=== PATIENT | female | born 1980 | race Caucasian/White ===

== ENCOUNTER 2016-09-22 12:05 | Inpatient (IN) | payer OTHER ==
[2016-09-22] MEDS ORDERED: Sodium Chloride 0.9% 1,000 ML PRIMARY IV ONE (13:15)
[2016-09-22] MEDS ORDERED: NORMAL SALINE 10 ML SYRINGE FLUSH IVP PRN ×2 (13:15→15:56)
[2016-09-22 14:05] LABS: BASOPHILS # (AUTO) 0.04 10*3/UL; BASOPHILS % (AUTO) 0.8 % (0-1); EOSINOPHILS # (AUTO) 0.11 10*3/UL; EOSINOPHILS % (AUTO) 2.3 % (0-8); HEMOGLOBIN 7.2 g/dL (12.0-16.0); LYMPHOCYTES # (AUTO) 2.09 10*3/uL; MEAN CORPUSCULAR HEMOGLOBIN 29.9 PG (27-31); MEAN CORPUSCULAR HGB CONC 35.1 g/dL (33-37); MEAN CORPUSCULAR VOLUME 85.1 FL (81-99); MEAN PLATELET VOLUME 8.7 FL (7.4-12.2); MONOCYTES # (AUTO) 0.27 10*3/UL (0.3-0.8); MONOCYTES % (AUTO) 5.5 % (5-15); NEUTROPHILS # (AUTO) 2.36 10*3/UL; NEUTROPHILS % (AUTO) 48.5 % (50-80); RED BLOOD COUNT 2.41 10^6/uL (4.20-5.40)
--- NOTE | 2016-09-22 14:08 | EKG ---
[address] [address] Measurements Intervals [place] Rate: 83 P: 54 MA: 139 QRS: 77 QRSD: 91 T: 52 QT: 390 QTc: 429 Interpretive Statements SINUS RHYTHM NONSPECIFIC T-WAVE ABNORMALITY (diffuse flattening: query hypocalemia, hypokalemia, myopathy) No previous ECG available for comparison Electronically Signed On 09-23-16 08:32:46 MDT by Pierre Parks MD [email or web address]
[2016-09-22 14:11] LABS: BILIRUBIN,URINE NEGATIVE (NEG); CLARITY,URINE Slightly Cloudy (CLEAR); COLOR,URINE YELLOW; GLUCOSE, URINE (UA) 500 mg/dL (NEG); HEMATOCRIT 20.5 % (37.0-47.0); NITRATE,URINE NEGATIVE (NEG); OCCULT BLOOD,URINE MODERATE (NEG); PROTEIN,URINE >300 mg/dl (NEG); UROBILINOGEN,URINE 0.2 EU/dL (0.2)
[2016-09-22 14:16] LABS: BUN/CREATININE RATIO 14.21 (6-20); C-REACTIVE PROTEIN 0.8 mg/dL (0.0-0.9); CALCIUM 7.6 mg/dL (8.7-10.7); MAGNESIUM 1.5 mg/dL (1.6-2.4); SERUM ALBUMIN 2.1 g/dL (3.5-4.8); URINE SAMPLE TYPE CLEAN CATCH URINE
[2016-09-22 14:17] LABS: BACTERIA,URINE FEW; RBC,URINE 15-20 /hpf; SQUAMOUS EPITHELIAL CELL,UR MODERATE; URINE CASTS FEW; URINE SPECIFIC GRAVITY - MAN 1020
[2016-09-22 14:18] LABS: AMPHETAMINE SCREEN NEGATIVE (NEG); CANNABINOID SCREEN,URINE NEGATIVE (NEG); COCAINE SCREEN NEGATIVE (NEG); METHADONE URINE SCREEN NEGATIVE (NEG); METHAMPHETAMINES SCREEN,URINE NEGATIVE (NEG); OPIATE SCREEN,URINE NEGATIVE (NEG)
[2016-09-22 14:25] LABS: CREATINE KINASE MB 3.17 NG/ML (0.00-5.00); TROPONIN I 0.022 ng/mL (< 0.040)
[2016-09-22 14:30] LABS: PLATELET MORPHOLOGY COMMENT NORMAL MORPHOLOGY (NORM); RBC MORPHOLOGY COMMENT NORMAL MORPHOLOGY (NORM); WBC MORPHOLOGY COMMENT NORMAL MORPHOLOGY (NORM)
[2016-09-22] MEDS ORDERED: ACETAMINOPHEN 325 MG TABLET PO PRN (15:56)
[2016-09-22] MEDS ORDERED: LIDOCAINE W/ SODIUM BICARB 0.5 ML SYR SUBD PRN (15:56)
[2016-09-22] MEDS ORDERED: Potassium Chloride 20 mEq 20 MEQ in Premix 1 BAG IV ONE (15:56)
[2016-09-22] MEDS ORDERED: diphenhydrAMINE 25 MG CAPSULE PO ONE (15:56)
[2016-09-22] MEDS ORDERED: ONDANSETRON 4 MG/2 ML VIAL IVP PRN (15:56)
[2016-09-22] MEDS ORDERED: Sodium Chloride 0.9% 500 ML PRIMARY IV ONE (15:56)
[2016-09-22] MEDS ORDERED: CALCIUM CARBONATE 500 MG (TUMS) CHEWABLE TABLET PO PRN (15:56)
--- NOTE | 2016-09-22 16:00 | DI ---
XR CXR 2VW PA/LAT,09/22/2016 1:15 PM: Clinical History: Anasarca. Previous Exam: None at this facility. Findings: PA and lateral views of the chest are obtained, and demonstrate a right-sided pleural effusion. The cardiomediastinum and bony thorax are unremarkable. Impression: Right-sided pleural effusion.
--- NOTE | 2016-09-22 17:26 | DI ---
CT ABDOMEN/PELVIS W/O CONTRAST,09/22/2016 4:08 PM: Clinical History: Acute renal failure. Previous Exam: None at this facility. Findings: Multiple helically acquired CT images are obtained through the abdomen and pelvis without contrast, a nd demonstrate diffuse anasarca throughout the subcutaneous fat. There are large bilateral pleural effusions. The liver, spleen, adrenals, pancreas and gallbladder are grossly normal but not well evaluated on th is exam due to diffuse edema. The urinary bladder is decompressed and not well evaluated. The uterus and adnexa are also not well e valuated. There is some free fluid within the deep pelvis. Skeletal structures are unremarkable. There is no evidence of hydronephrosis. A few peripheral vascular calcifications are seen. Impression: Diffuse edema and anasarca involving the subcutaneous fat as well as the mesenteric fat which is not well evaluated on this exam. No obstructive uropathy.
[2016-09-22] MEDS ORDERED: Albumin Human Soln 25% 25 GM in Premix 1 BAG IV ONE (17:40)
[2016-09-22] MEDS ORDERED: Magnesium Sulfate 2gm (Premix) 2 GM in Premix 1 BAG IV ONE (17:45)
[2016-09-22] MEDS ORDERED: DEXTROSE 31 GM GEL PO PRN (17:45)
[2016-09-22] MEDS ORDERED: Glucagon Inj Vial 1 MG/ML VIAL IM PRN (17:45)
[2016-09-22] MEDS ORDERED: DEXTROSE 50%-WATER SYRINGE 50 ML SYRINGE IVP PRN (17:45)
[2016-09-22] MEDS ORDERED: Insulin Sliding Scale Protocol SUBCUT PRN (17:45)
--- NOTE | 2016-09-22 17:59 | PDOC ---
History and Physical - History of Present Illness Date and Time of Service: 09/22/2016, 1755 Chief Complaint: Welfare check History of Present Illness: This is a 36 YO with schizophrenia, Hx of renal disease requiring dialysis, DMII , HTN, who was found today on a welfare check and brought in for evaluation. She was reporting hallucinations, and had suicidal ideation and was placed on a hold. On medical evaluation, the patient was found to be in renal failure, has anemia, probably related to kidney disease (I was told by ER physician that rectal was negative), and electrolyte abnormalities. The patient was living with her sister, her guardian, but apparently moved out a month ago and stopped her medications at that time. The patient has a difficult time providing a history due to her schizophrenia with tangential thinking and flight of ideas. She denied any other symptoms of chest pain, shortness of breath, nausea, vomiting, or urinary difficulties. No exacerbating factors other than stopping medications could be identified. Past Medical History Medical History: 1. chronic kidney disease. 2. HTN. 3. Anemia of chronic kidney disease is likely. 4. DMII. 5. schizophrenia Surgical History: 1. History of dialysis catheters. Pertinent Family History: unknown and the patient cannot provide the history due to her psychiatric condition. Past Social History: smokes daily, denies drinking alcohol or drug use. has two healthy children. parents live in [place], [place], and the patient had been in [place] in the past. Tobacco Use: Current Every Day Smoker Substance Use Type: None Alcohol Use: None Medication / Allergies Home Medications: Home Medications Medication Instructions Recorded Confirmed Type Alprazolam [Alprazolam] 1 mg PO PRN 09/22/16 History Amphet Asp/Amphet/D-Amphet 20 mg PO 09/22/16 History [Amphetamine Salts 20 mg Tablet] Budesonide/Formoterol Fumarate 1 inh INH BID 09/22/16 09/22/16 History [Symbicort 160-4.5 Mcg Inhaler] Furosemide [Furosemide] 40 mg PO BID 09/22/16 09/22/16 History Insulin Aspart [Novolog Flexpen] SUBCUT 09/22/16 History Insulin Detemir [Levemir Flextouch] SUBCUT 09/22/16 History Allergies/Adverse Reactions: Allergies Allergy/AdvReac Type Severity Reaction Status Date / Time bee venom protein (honey bee) Allergy Anaphylaxis Verified 09/22/16 13:28 kiwi Allergy SWELLING Verified 09/22/16 16:00 Penicillins Allergy Anaphylaxis Verified 09/22/16 13:28 Review of Systems - Review of Systems All Systems: Reviewed & No Additional Complaints Except as Stated (I did a 12 point review of systems and it is negative except as per HPI and that noted below.) - Constitutional Constitutional: REPORTS: Other (apparently had not had a meal in the last 4 days.) - Respiratory Respiratory: DENIES: Negative System Review, Cough, Sputum, Dyspnea At Rest, Dyspnea with Exertion, Pleuritic Pain, Hemoptysis, Wheezing, Other, See HPI - Cardiovascular Cardiovascular: DENIES: Negative System Review, Chest Pain, Edema, Syncope, Palpitations, Orthopnea, Paroxysmal Nocturnal Dyspnea, Other, See HPI - Gastrointestinal Gastrointestinal / Abdominal: DENIES: Negative System Review, Nausea, Vomiting, Diarrhea, Constipation, Abdominal Pain, Bloody Stool, Poor Appetite, Heartburn, Regurgitation, Bloating, Lactose Intolerance, Melena, Bright Red Blood Per Rectum, Other, See HPI - Genitourinary Genitourinary: DENIES: Negative System Review, Pain, Burning, Hematuria, Incontinence, Urgency, Hesitant Stream, Decreased Stream, Nocutria, Discharge, Sexual Dyfunction, Other, See HPI - Musculoskeletal Musculoskeletal: REPORTS: Other (edema in lower extremities) - Neurological Neurologic: DENIES: Negative System Review, Headache, Numbness/Paresthesia, Tremors, Weakness, Seizures, Head Trauma, LOC, Dizziness, Confusion, Memory Loss , Difficulty Walking, Incoordination, Other, See HPI - Psychiatric Psychiatric: REPORTS: Other (flight of ideas, tangential, visual hallucinations , schizophrenia), Suicidality Exam - Vitals Vital Signs: Vital Signs Temperature 97.8 F Temperature Source Temporal Artery Scan Pulse Rate [Pulse Oximeter] 79 Respiratory Rate 22 Blood Pressure [Left Arm] 163/121 Pulse Ox 95 Oxygen Delivery Method Room Air Height 5 ft 9 in Weight 170 lb 9.6 oz - General General Appearance: POSITIVE: No Acute Distress, Cooperative - Head Head Exam: POSITIVE: Normal Inspection, Normocephalic, Atraumatic - Eye Eye Exam: POSITIVE: No Scleral Icterus - ENT ENT Exam: POSITIVE: Mucous Membranes Moist - Neck Neck Exam: POSITIVE: Normal Inspection, No Tenderness, No Thyromegaly - Respiratory Respiratory Exam: POSITIVE: Clear to Auscultation - Bilaterally, Breathing Non Labored, Normal to Percussion and Palpation - Cardiovascular Cardiovascular Exam: POSITIVE: RRR, No Murmur, No Clicks, No Gallops, No Rubs, No JVD - GI/Abdominal GI/Abdominal Exam: POSITIVE: Normal Bowel Sounds, Non Tender, Non Distended, Soft - Rectal Rectal Exam: POSITIVE: Deferred Additional Rectal Exam Details: done in ER per my discussion with ER physician, negative for blood. - External Exam: POSITIVE: Deferred Exam: POSITIVE: Deferred - Extremities Extremities Exam: POSITIVE: No Clubbing Present, No Cyanosis Present, +3 Edema - Back Back Exam: POSITIVE: No CVA Tenderness - Neurological Neurological Exam: POSITIVE: Alert, Oriented x 3, No Facial Droop, Speech Intact / Clear, Moves All Extremities Equally - Psychiatric Psychiatric Exam: POSITIVE: Suicidal Ideation Additional Psychiatric Exam Details: hallucinations, visual and auditory flight of ideas tangential. - Central Line Examination Central Line Present on Admission: No Results - Labs CBC and BMP: 09/22/16 14:01 09/22/16 14:01 Labs - Last 24 Hours: Laboratory Results 09/22/16 09/22/16 Range/Units 15:56 16:00 Phosphorus 4.5 H (2.4-4.3) mg/dl Blood Type A POSITIVE Antibody Screen Negative Crossmatch See Detail Laboratory Results 09/22/16 09/22/16 09/22/16 Range/Units 14:01 15:56 16:00 WBC 4.87 (4.8-10.8) 10^3/uL RBC 2.41 L (4.20-5.40) 10^6/uL Hgb 7.2 L (12.0-16.0) g/dL Hct 20.5 L* (37.0-47.0) % MCV 85.1 (81-99) FL MCH 29.9 (27-31) PG MCHC 35.1 (33-37) g/dL RDW Std Deviation 47.9 (39-50) fL RDW Coeff of Lona 16.1 H (11.5-14.5) % Plt Count 246 (140-350) 10*3/uL MPV 8.7 (7.4-12.2) FL Immature Gran % (Auto) 0 (0-5) % Neut % (Auto) 48.5 L (50-80) % Lymph % (Auto) 42.9 (10-50) % [place] % (Auto) 5.5 (5-15) % Eos % (Auto) 2.3 (0-8) % Baso % (Auto) 0.8 (0-1) % Immature Gran # (Auto) 0 10*3/UL Neut # (Auto) 2.36 10*3/UL Lymph # (Auto) 2.09 10*3/uL [place] # (Auto) 0.27 L (0.3-0.8) 10*3/UL Eos # (Auto) 0.11 10*3/UL Baso # (Auto) 0.04 10*3/UL WBC Morphology Comment Normal morphology (NORM) Plt Morphology Comment Normal morphology (NORM) RBC Morph Comment Normal morphology (NORM) Sodium 132 L (135-145) meq/L Potassium 3.0 L (3.8-5.2) meq/L Chloride 105 (98-112) meq/L Carbon Dioxide 23 (23-33) meq/L Anion Gap 4 L (5-20) BUN 27 H (7-22) mg/dL Creatinine 1.9 H (0.50-1.20) mg/dL Estimated GFR 30 (>60 ml/min/1.73m(2)) BUN/Creatinine Ratio 14.21 (6-20) Glucose 220 H (78-110) mg/dL Calculated Osmolality 285.0 (267-292) mOsm/kg Lactic Acid 0.8 (0.70-2.10) MMOL/L Calcium 7.6 L (8.7-10.7) mg/dL Phosphorus 4.5 H (2.4-4.3) mg/dl Magnesium 1.5 L (1.6-2.4) mg/dL Total Bilirubin 0.4 (0.3-1.2) mg/dL AST 18 (8-39) IU/L ALT 24 (9-52) IU/L Alkaline Phosphatase 89 (38-126) IU/L Total Creatine Kinase 171 H (30-136) IU/L CK-MB (CK-2) 3.17 (0.00-5.00) NG/ML Troponin I 0.022 (< 0.040) ng/mL C-Reactive Protein 0.8 (0.0-0.9) mg/dL NT-Pro-B Natriuret Pep 18719 H (0-125) PG/ML Total Protein 4.9 L (6.1-8.0) g/dL Albumin 2.1 L (3.5-4.8) g/dL Globulin 2.8 (2.50-4.10) g/dL Albumin/Globulin Ratio 0.70 L (1.3-2.0) mg/g TSH 2.88 (0.2700-4.2000) uIU/mL Ur Collection Type Clean catch urine Urine Color Yellow Urine Clarity Slightly cloudy (CLEAR) Urine pH 7.0 (5.0-8.5) Ur Specific [place] 1.020 (1.005-1.030) U Specif Grav (Refrac) 1.020 Urine Protein >300 (NEG) mg/dl Urine Glucose (UA) 500 (NEG) mg/dL Urine Ketones Negative (NEG) Urine Occult Blood Moderate H (NEG) Urine Nitrate Negative (NEG) Urine Bilirubin Negative (NEG) Urine Urobilinogen 0.2 (0.2) EU/dL Ur Leukocyte Esterase Negative (NEG) Urine RBC 15-20 (NONE) /hpf Urine WBC 4-6 (NONE) Ur Squamous Epith Cells Moderate (NONE) Ur Renal Epithelial Cell None (NONE) Urine Crystals None Urine Bacteria Few (NONE) Urine Casts Few (NONE) Urine Mucus Few (NONE) Urine Trichomonas None (NONE) Urine Yeast None (NONE) Ur Culture Indicated? Culture not set Urine HCG, Qual Negative Urine Opiates Screen Negative (NEG) Ur Buprenorphine Negative (NEG) Ur Oxycodone Screen Negative (NEG) Urine Methadone Screen Negative (NEG) Ur Propoxyphene Screen Negative (NEG) Barbiturate Screen Negative (NEG) U Tricyclic Antidepress Negative (NEG) Phencyclidine Screen Negative (NEG) Amphetamines Screen Negative (NEG) U Methamphetamines Scrn Negative (NEG) Benzodiazepines Screen Negative (NEG) Cocaine Screen Negative (NEG) U Marijuana (THC) Screen Negative (NEG) Blood Type A POSITIVE Antibody Screen Negative Crossmatch See Detail - EKG Data -: EKG Interpreted by Me Rate: Normal EKG Shows Normal: Sinus Rhythm - EKG Data EKG Interpretation: Normal EKG - Imaging Status: Image Reviewed by Me (Chest x-ray, negative on my view other than a right pleural effusion. No evidence of pneumonia. CT scan of abdomen and pelvis shows anasarca and bilateral effusions, right greater than left) Assessment and Plan - Patient Problems (1) Acute on chronic renal failure Current Visit: Yes Status: Acute (2) Anemia due to chronic kidney disease Current Visit: Yes Status: Acute (3) Poorly controlled type II diabetes mellitus with renal complication Current Visit: Yes Status: Acute (4) Hypertension Current Visit: Yes Status: Acute Qualifiers: Hypertension type: renovascular hypertension Qualified Description: Renovascular hypertension Qualifier Code(s): (I15.0) Renovascular hypertension (5) Schizophrenia Current Visit: Yes Status: Acute Qualifiers: Schizophrenia type: unspecified Qualified Description: Schizophrenia, unspecified type Qualifier Code(s): (F20.9) Schizophrenia, unspecified (6) Tobacco abuse Current Visit: Yes Status: Acute (7) Hypokalemia Current Visit: Yes Status: Acute (8) Hyperphosphatemia Current Visit: Yes Status: Acute - Assessment / Plan Additional Assessment/Plan Details: Admit the patient. Transfuse 2 units of packed red blood cells, get iron studies, I spoke with the nephrology service, and we'll place the patient back on Lasix as well. They are aware of the creatinine. Likely, tomorrow, if the patient improves or even if she doesn't, she may be looking at transfer for further nephrology care. I spoke with nephrology out of [place], [place], and they were familiar with the patient. Resume Lasix, give albumin infusion. I will try to put the patient on sliding scale lispro for diabetes coverage. Check cholesterol in the morning. Resume blood pressure medication, given her fluid status I think I'll start Norvasc. The patient is on a 381 hold, and likely will need a stay for her psychiatric stabilization in terms of her hallucinations, suicidal ideation, and stabilization on medications. However she is not medically ready to go yet. Confirmed what medications I can from review of local pharmacy lists, but certainly these medications on hold off on restarting such as Xanax, and amphetamine derivative. Check labs tomorrow.
[2016-09-22] MEDS ORDERED: FUROSEMIDE 10 MG/1 ML - 4 ML IVP ONE (18:12)
[2016-09-22] MEDS ORDERED: LABETALOL 20 MG/4 ML (5 MG/1 ML) SYRINGE IVP PRN (18:34)
[2016-09-22] MEDS ORDERED: CALCIUM CARBONATE 500 MG (TUMS) CHEWABLE TABLET PO SCH (21:00)
[2016-09-22] MEDS ORDERED: QUEtiapine Tab 100 MG TAB PO SCH (21:00)
[2016-09-22] MEDS: Insulin Lispro Flexpen 300 UNIT/3 ML INSULN.PEN SUBCUT SCH (22:41)
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
[2016-09-23] MEDS ORDERED: POTASSIUM CHLORIDE 20 MEQ TAB PO ONE (05:04)
[2016-09-23] MEDS ORDERED: Albumin Human Soln 25% 25 GM in Premix 1 BAG IV ONE (05:15)
[2016-09-23] MEDS ORDERED: Potassium Chloride 20 mEq 20 MEQ in Premix 1 BAG IV ONE (05:15)
[2016-09-23] MEDS: FUROSEMIDE 10 MG/1 ML - 4 ML IVP SCH ×2 (06:51→14:09)
[2016-09-23 07:40] LABS: BASOPHILS # (AUTO) 0.11 10*3/UL; BASOPHILS % (AUTO) 2.2 % (0-1); EOSINOPHILS # (AUTO) 0.16 10*3/UL; EOSINOPHILS % (AUTO) 3.2 % (0-8); HEMATOCRIT 25.9 % (37.0-47.0); HEMOGLOBIN 8.9 g/dL (12.0-16.0); LYMPHOCYTES # (AUTO) 2.63 10*3/uL; MEAN CORPUSCULAR HEMOGLOBIN 28.9 PG (27-31); MEAN CORPUSCULAR HGB CONC 34.4 g/dL (33-37); MEAN CORPUSCULAR VOLUME 84.1 FL (81-99); MONOCYTES # (AUTO) 0.28 10*3/UL (0.3-0.8); MONOCYTES % (AUTO) 5.6 % (5-15); NEUTROPHILS # (AUTO) 1.83 10*3/UL; NEUTROPHILS % (AUTO) 36.5 % (50-80); RED BLOOD COUNT 3.08 10^6/uL (4.20-5.40)
[2016-09-23] MEDS: Insulin Lispro Flexpen 300 UNIT/3 ML INSULN.PEN SUBCUT SCH ×2 (07:40→11:45)
[2016-09-23 07:46] LABS: PLATELET MORPHOLOGY COMMENT NORMAL MORPHOLOGY (NORM); RBC MORPHOLOGY COMMENT NORMAL MORPHOLOGY (NORM); WBC MORPHOLOGY COMMENT NORMAL MORPHOLOGY (NORM)
[2016-09-23 07:59] LABS: BUN/CREATININE RATIO 17.22 (6-20); CALCIUM 7.7 mg/dL (8.7-10.7); SERUM ALBUMIN 2.5 g/dL (3.5-4.8)
[2016-09-23 08:00] LABS: HEMOGLOBIN A1C 6.06 % (4.2-6.0)
[2016-09-23 09:21] VITALS: RESP 20
--- NOTE | 2016-09-23 14:05 | DCSUMMARY ---
Hospitalization Summary Admit Date: 09/22/16 Discharge Date: 09/23/16 Primary Diagnosis:: acute on chronic renal failure with low urine output Hospital Course: This is a 36-year-old female who unfortunately suffers from fairly debilitating schizophrenia, currently complicated by hallucinations both auditory and visual , diabetes mellitus type II, and renal failure. She has hypertension as well. She was admitted after a welfare check found her having not had anything to eat for the last 4 days. She stopped all of her medications about a month ago and apparently is now estranged from her sister who was her guardian. She is essentially homeless, and is on a 381 hold. She was admitted in the setting of metabolic derangements in signs and symptoms consistent with renal failure including total body anasarca, creatinine, hyperphosphatemia, initially hypokalemia, and hypomagnesemia. We gave the patient 2 units of packed red blood cells, did an iron panel which showed a normal iron level although the TIBC is low. We also replaced her electrolytes although her potassium is slightly elevated at the time of discharge. I resumed some medications, including Lasix, and I also started Norvasc given her fluid overload state. We did find in terms of her diabetes and it is fairly well-controlled and can be diet controlled at this point with a hemoglobin A1c of 6.06. The patient's renal function did not really improve and she required Bowers catheterization to more accurately monitor output. She had 1000 mL out in the last 24 hours. Overall, I think the patient is beyond her capabilities to take care of here in [place] due to her renal failure. Given her fluid overload, electrolyte abnormalities, I don't know if she'll need dialysis but I think she would be best served by evaluation by nephrology, and I spoke to Dr. Pantoja, as well as the hospitalist and emergency room physician in [place], and they agreed to accept the patient. I disclosed all of the social issues with the patient including the 381 hold, we found that the patient is on probation, and she has no home to go to. She will likely need a new guardian. In terms of schizophrenia, I did resume Seroquel. She is a little more tired today and might need a lower dose. I did not resume any other medications, as she has been on Xanax and an amphetamine derivative. I think this can be better assessed by psychiatrist down the road. The patient has no complaints of chest pain, shortness breath, nausea or vomiting. She is eating very well. Assessment and Plan: 1. As per discharge assessments noted 2. Disposition: Patient is discharged to [facility] 3. Condition on discharge, stable, but condition could worsen based on her diagnosis above 4. Diet: regular diet/as per [facility] 5. Activities: Activities as per [facility] 6. Follow-Up: 1. Primary care provider 7 days post discharge from the hospital. 2. 7. Medications at the Time of Discharge: Active Medications Generic Name Dose Route Start Last Admin Trade Name Freq PRN Reason Stop Dose Admin Acetaminophen 650 mg 09/22/16 15:56 Tylenol PO Q6H PRN Pain or Fever Amlodipine Besylate 10 mg 09/23/16 09:00 09/23/16 11:41 Norvasc PO 10 mg DAILY MELI Administration Calcium Carbonate 1 - 2 tab 09/22/16 15:56 09/22/16 22:41 Tums PO 2 tab Q6H PRN Administration Heartburn Dextrose 30 - 40 ml 09/22/16 17:45 Dextrose 50% Inj IVP Q15M PRN BG < 70 unable to take oral Furosemide 40 mg 09/23/16 07:00 09/23/16 06:51 Lasix Inj IVP 40 mg BID@0700,1300 MELI Administration Glucagon 0.5 mg 09/22/16 17:45 Glucagen IM ONCE PRN BG < 70 NPO & NO IV Glucose 15 - 20 gm 09/22/16 17:45 Insta-Glucose Gel PO Q15M PRN BG < 70 Sodium Chloride 25 mls @ 200 mls/hr 09/22/16 15:56 Normal Saline 0.9% IV .Post Infusion PRN No Primary IV for Flush ONLY Insulin Human Lispro 0 - 20 unit 09/22/16 21:00 09/23/16 11:45 Humalog Flexpen Inj SUBCUT Not Given AC [facility] Protocol Labetalol HCl 20 mg 09/22/16 18:34 Normodyne Inj IVP Q4H PRN SBP > 190, DBP > 130 Lidocaine HCl 0.5 ml 09/22/16 15:56 Lidocaine Buffered Inj SUBD ONCE PRN IV Starts Ondansetron HCl 4 mg 09/22/16 15:56 Zofran Inj IVP Q4H PRN NAUSEA / VOMITING Quetiapine Fumarate 100 mg 09/22/16 21:00 09/22/16 22:40 Seroquel Tab PO 100 mg BEDTIME MELI Administration Sodium Chloride 5 - 20 ml 09/22/16 15:56 Saline Flush IVP BID PRN Flush 8. Time, care, counseling and coordination of care for this discharge is greater than 30 minutes. Exam - Vitals Vital Signs: Vital Signs Temperature 98.2 F Temperature Source Temporal Artery Scan Pulse Rate [Pulse Oximeter] 84 Pulse Rate 86 Respiratory Rate 20 Blood Pressure [Left Arm] 152/89 Blood Pressure 145/89 Pulse Ox 98 Oxygen Flow Rate 1 Oxygen Delivery Method Nasal Cannula Height 5 ft 9 in Weight 170 lb 9.6 oz - General General Appearance: POSITIVE: No Acute Distress, Cooperative - Head Head Exam: POSITIVE: Normal Inspection, Normocephalic, Atraumatic - Eye Eye Exam: POSITIVE: No Scleral Icterus - Respiratory Respiratory Exam: POSITIVE: Clear to Auscultation - Bilaterally, Breathing Non Labored, Decreased Breath Sounds (Right base) - Cardiovascular Cardiovascular Exam: POSITIVE: RRR, No Murmur, No Clicks, No Gallops, No Rubs, No JVD - GI/Abdominal GI/Abdominal Exam: POSITIVE: Normal Bowel Sounds, Non Tender, Non Distended, Soft - Extremities Extremities Exam: POSITIVE: +3 Edema (3+ edema in all extremities, upper extremity is and lower extremities.) - Neurological Neurological Exam: POSITIVE: Alert, No Facial Droop, Speech Intact / Clear, Moves All Extremities Equally - Psychiatric Psychiatric Exam: POSITIVE: Suicidal Ideation (She denies this today, but has had hallucinations through the hospital stay. She is not violent.) - Central Line Examination Central Line Present on Admission: No Data Perinent Studies: Laboratory Results 09/22/16 09/22/16 09/22/16 Range/Units 14:01 15:56 16:00 WBC 4.87 (4.8-10.8) 10^3/uL RBC 2.41 L (4.20-5.40) 10^6/uL Hgb 7.2 L (12.0-16.0) g/dL Hct 20.5 L* (37.0-47.0) % MCV 85.1 (81-99) FL MCH 29.9 (27-31) PG MCHC 35.1 (33-37) g/dL RDW Std Deviation 47.9 (39-50) fL RDW Coeff of [place] 16.1 H (11.5-14.5) % Plt Count 246 (140-350) 10*3/uL MPV 8.7 (7.4-12.2) FL Immature Gran % (Auto) 0 (0-5) % Neut % (Auto) 48.5 L (50-80) % Lymph % (Auto) 42.9 (10-50) % [place] % (Auto) 5.5 (5-15) % Eos % (Auto) 2.3 (0-8) % Baso % (Auto) 0.8 (0-1) % Immature Gran # (Auto) 0 10*3/UL Neut # (Auto) 2.36 10*3/UL Lymph # (Auto) 2.09 10*3/uL [place] # (Auto) 0.27 L (0.3-0.8) 10*3/UL Eos # (Auto) 0.11 10*3/UL Baso # (Auto) 0.04 10*3/UL WBC Morphology Comment Normal morphology (NORM) Plt Morphology Comment Normal morphology (NORM) RBC Morph Comment Normal morphology (NORM) Sodium 132 L (135-145) meq/L Potassium 3.0 L (3.8-5.2) meq/L Chloride 105 (98-112) meq/L Carbon Dioxide 23 (23-33) meq/L Anion Gap 4 L (5-20) BUN 27 H (7-22) mg/dL Creatinine 1.9 H (0.50-1.20) mg/dL Estimated GFR 30 (>60 ml/min/1.73m(2)) BUN/Creatinine Ratio 14.21 (6-20) Glucose 220 H (78-110) mg/dL Mean Blood Glucose mg/dL Hemoglobin A1c (4.2-6.0) % Calculated Osmolality 285.0 (267-292) mOsm/kg Lactic Acid 0.8 (0.70-2.10) MMOL/L Calcium 7.6 L (8.7-10.7) mg/dL Phosphorus 4.5 H (2.4-4.3) mg/dl Magnesium 1.5 L (1.6-2.4) mg/dL Iron (37-170) UG/DL TIBC (265-497) ug/dL % Saturation (14-50) % Total Bilirubin 0.4 (0.3-1.2) mg/dL AST 18 (8-39) IU/L ALT 24 (9-52) IU/L Alkaline Phosphatase 89 (38-126) IU/L Total Creatine Kinase 171 H (30-136) IU/L CK-MB (CK-2) 3.17 (0.00-5.00) NG/ML Troponin I 0.022 (< 0.040) ng/mL C-Reactive Protein 0.8 (0.0-0.9) mg/dL NT-Pro-B Natriuret Pep 25410 H (0-125) PG/ML Total Protein 4.9 L (6.1-8.0) g/dL Albumin 2.1 L (3.5-4.8) g/dL Globulin 2.8 (2.50-4.10) g/dL Albumin/Globulin Ratio 0.70 L (1.3-2.0) mg/g TSH 2.88 (0.2700-4.2000) uIU/mL Ur Collection Type Clean catch urine Urine Color Yellow Urine Clarity Slightly cloudy (CLEAR) Urine pH 7.0 (5.0-8.5) Ur Specific [place] 1.020 (1.005-1.030) U Specif Grav (Refrac) 1.020 Urine Protein >300 (NEG) mg/dl Urine Glucose (UA) 500 (NEG) mg/dL Urine Ketones Negative (NEG) Urine Occult Blood Moderate H (NEG) Urine Nitrate Negative (NEG) Urine Bilirubin Negative (NEG) Urine Urobilinogen 0.2 (0.2) EU/dL Ur Leukocyte Esterase Negative (NEG) Urine RBC 15-20 (NONE) /hpf Urine WBC 4-6 (NONE) Ur Squamous Epith Cells Moderate (NONE) Ur Renal Epithelial Cell None (NONE) Urine Crystals None Urine Bacteria Few (NONE) Urine Casts Few (NONE) Urine Mucus Few (NONE) Urine Trichomonas None (NONE) Urine Yeast None (NONE) Ur Culture Indicated? Culture not set Urine HCG, Qual Negative Urine Opiates Screen Negative (NEG) Ur Buprenorphine Negative (NEG) Ur Oxycodone Screen Negative (NEG) Urine Methadone Screen Negative (NEG) Ur Propoxyphene Screen Negative (NEG) Barbiturate Screen Negative (NEG) U Tricyclic Antidepress Negative (NEG) Phencyclidine Screen Negative (NEG) Amphetamines Screen Negative (NEG) U Methamphetamines Scrn Negative (NEG) Benzodiazepines Screen Negative (NEG) Cocaine Screen Negative (NEG) U Marijuana (THC) Screen Negative (NEG) Blood Type A POSITIVE Antibody Screen Negative Crossmatch See Detail 09/22/16 09/23/16 Range/Units 17:48 07:24 WBC 5.01 (4.8-10.8) 10^3/uL RBC 3.08 L (4.20-5.40) 10^6/uL Hgb 8.9 L (12.0-16.0) g/dL Hct 25.9 L (37.0-47.0) % MCV 84.1 (81-99) FL MCH 28.9 (27-31) PG MCHC 34.4 (33-37) g/dL RDW Std Deviation 48.9 (39-50) fL RDW Coeff of Lona 16.6 H (11.5-14.5) % Plt Count 208 (140-350) 10*3/uL MPV 9.0 (7.4-12.2) FL Immature Gran % (Auto) 0 (0-5) % Neut % (Auto) 36.5 L (50-80) % Lymph % (Auto) 52.5 H (10-50) % [place] % (Auto) 5.6 (5-15) % Eos % (Auto) 3.2 (0-8) % Baso % (Auto) 2.2 H (0-1) % Immature Gran # (Auto) 0 10*3/UL Neut # (Auto) 1.83 10*3/UL Lymph # (Auto) 2.63 10*3/uL [place] # (Auto) 0.28 L (0.3-0.8) 10*3/UL Eos # (Auto) 0.16 10*3/UL Baso # (Auto) 0.11 10*3/UL WBC Morphology Comment Normal morphology (NORM) Plt Morphology Comment Normal morphology (NORM) RBC Morph Comment Normal morphology (NORM) Sodium 132 L (135-145) meq/L Potassium 5.5 H D (3.8-5.2) meq/L Chloride 107 (98-112) meq/L Carbon Dioxide 23 (23-33) meq/L Anion Gap 2 L (5-20) BUN 31 H (7-22) mg/dL Creatinine 1.8 H (0.50-1.20) mg/dL Estimated GFR 32 (>60 ml/min/1.73m(2)) BUN/Creatinine Ratio 17.22 (6-20) Glucose 155 H (78-110) mg/dL Mean Blood Glucose 115.798 mg/dL Hemoglobin A1c 6.06 H (4.2-6.0) % Calculated Osmolality 283.0 (267-292) mOsm/kg Lactic Acid (0.70-2.10) MMOL/L Calcium 7.7 L (8.7-10.7) mg/dL Phosphorus 5.0 H (2.4-4.3) mg/dl Magnesium (1.6-2.4) mg/dL Iron 41 (37-170) UG/DL TIBC 158 L (265-497) ug/dL % Saturation 25.9 (14-50) % Total Bilirubin (0.3-1.2) mg/dL AST (8-39) IU/L ALT (9-52) IU/L Alkaline Phosphatase (38-126) IU/L Total Creatine Kinase (30-136) IU/L CK-MB (CK-2) (0.00-5.00) NG/ML Troponin I (< 0.040) ng/mL C-Reactive Protein (0.0-0.9) mg/dL NT-Pro-B Natriuret Pep (0-125) PG/ML Total Protein (6.1-8.0) g/dL Albumin 2.5 L (3.5-4.8) g/dL Globulin (2.50-4.10) g/dL Albumin/Globulin Ratio (1.3-2.0) mg/g TSH (0.2700-4.2000) uIU/mL Ur Collection Type Urine Color Urine Clarity (CLEAR) Urine pH (5.0-8.5) Ur Specific [place] (1.005-1.030) U Specif Grav (Refrac) Urine Protein (NEG) mg/dl Urine Glucose (UA) (NEG) mg/dL Urine Ketones (NEG) Urine Occult Blood (NEG) Urine Nitrate (NEG) Urine Bilirubin (NEG) Urine Urobilinogen (0.2) EU/dL Ur Leukocyte Esterase (NEG) Urine RBC (NONE) /hpf Urine WBC (NONE) Ur Squamous Epith Cells (NONE) Ur Renal Epithelial Cell (NONE) Urine Crystals Urine Bacteria (NONE) Urine Casts (NONE) Urine Mucus (NONE) Urine Trichomonas (NONE) Urine Yeast (NONE) Ur Culture Indicated? Urine HCG, Qual Urine Opiates Screen (NEG) Ur Buprenorphine (NEG) Ur Oxycodone Screen (NEG) Urine Methadone Screen (NEG) Ur Propoxyphene Screen (NEG) Barbiturate Screen (NEG) U Tricyclic Antidepress (NEG) Phencyclidine Screen (NEG) Amphetamines Screen (NEG) U Methamphetamines Scrn (NEG) Benzodiazepines Screen (NEG) Cocaine Screen (NEG) U Marijuana (THC) Screen (NEG) Blood Type Antibody Screen Crossmatch Patient Problems - Patient Problem List (1) Acute on chronic renal failure Current Visit: Yes Status: Acute (2) Anemia due to chronic kidney disease Current Visit: Yes Status: Acute (3) Poorly controlled type II diabetes mellitus with renal complication Current Visit: Yes Status: Acute (4) Hypertension Current Visit: Yes Status: Acute Qualifiers: Hypertension type: renovascular hypertension Qualified Description: Renovascular hypertension Qualifier Code(s): (I15.0) Renovascular hypertension (5) Schizophrenia Current Visit: Yes Status: Acute Qualifiers: Schizophrenia type: unspecified Qualified Description: Schizophrenia, unspecified type Qualifier Code(s): (F20.9) Schizophrenia, unspecified (6) Tobacco abuse Current Visit: Yes Status: Acute (7) Hypokalemia Current Visit: Yes Status: Resolved (8) Hyperphosphatemia Current Visit: Yes Status: Acute
[2016-09-23 14:12] VITALS: TEMP 98.1
== END 2016-09-23 14:51 | disposition short-term general hospital (02) | DRG 684 ==
LOC: ER 12:11 → MED/SURG 15:49
PROVIDERS: ADMIT Family Medicine; ATTEND Family Medicine
PROC: 30233N1 Transfusion of Nonautologous Red Blood Cells into Peripheral Vein, Percutaneous Approach (ICD-10-PCS; principal; 2016-09-23)
DX: R60.1 Generalized edema (principal); D64.9 Anemia, unspecified; E11.21 Type 2 diabetes mellitus with diabetic nephropathy; N17.9 Acute kidney failure, unspecified; E11.22 Type 2 diabetes mellitus with diabetic chronic kidney disease; N18.9 Chronic kidney disease, unspecified; E87.6 Hypokalemia; E83.42 Hypomagnesemia; D63.8 Anemia in other chronic diseases classified elsewhere; F20.9 Schizophrenia, unspecified; Z72.0 Tobacco use; E83.39 Other disorders of phosphorus metabolism
CPT/HCPCS: 36415; 36430; 71020; 74176; 80048; 80053; 80305; 81001; 81003; 82040; 82550; 82553; 82948; 83036; 83540; 83550; 83605; 83735; 83880; 84100; 84443; 84484; 84703; 85025; 86140; 86850; 86900; 86901; 86922; 87040; 90791; 93005; 93010; 94761; 99285; J1940; J3475; J7030; P9016